=== PATIENT | female | born 1960 | race Caucasian/White ===

== ENCOUNTER 2020-11-05 12:46 | Emergency (ER) | payer OTHER, SELFPAY ==
[2020-11-05 13:01] VITALS: BP 167/99; PULSE 91; RESP 18; TEMP 36.7; O2SAT 98
--- NOTE | 2020-11-05 13:05 | ED.GENADULT ---
HPI - General Adult General Chief complaint: Eye Problems Stated complaint: eye problems Time Seen by Provider: 11/05/20 13:05 Source: patient and RN notes reviewed Mode of arrival: ambulatory Limitations: no limitations History of Present Illness HPI narrative: 60-year-old female presents with complaints of swelling and redness to the right upper eyelid for 1 day. ?Debbie reports increasing symptoms throughout the night and today. ?Warm compresses and saline flushes without relief. ?Debbie believed she initially had retained contact, in which she had removed intact. ?No redness to the eye. ?No drainage. ?No blurred vision, double vision, sensation of foreign body, facial swelling, or pain of eye with movement. No exacerbating factors. No relieving factors. Wears glasses and/or contacts, presently has glasses on. Denies fever. Remains active. The patient reports she has not been diagnosed with COVID-19. The patient reports she is not waiting for the results of a COVID-19 lab test. ?The patient reports she does not have chills, weakness, fatigue, or myalgia. The patient reports she does not have a new or worsening cough or shortness of breath. The patient reports she does not have any rhinorrhea, congestion, loss of taste, sore throat, and diarrhea. Denies recent traveling. Denies concerns for COVID-19 or exposures. At this time, the patient is not suspected of having COVID-19. Some parts of this dictation were generated by voice recognition software and may contain typographical and/or grammatical inaccuracies. Related Data Home Medications Medication Instructions Recorded Confirmed cholecalciferol (vitamin D3) 11/05/20 11/05/20 Allergies Allergy/AdvReac Type Severity Reaction Status Date / Time Penicillins Allergy Severe Other Verified 11/05/20 13:09 Review of Systems Review of Systems: Narrative: CONSTITUTIONAL: Denies fever, chills, sweats. EYES: Denies visual changes, discharge, sensation of foreign body. Complaints of swelling and redness to RT upper eyelid. ENT: Denies rhinorrhea, congestion, sore throat, otalgia. CARDIOVASCULAR: Denies chest pain, palpitations, edema. RESPIRATORY: Denies dyspnea, wheezing, cough. GASTROINTESTINAL: Denies abdominal pain, nausea, vomiting, diarrhea. SKIN: Denies rash or itching. MUSCULOSKELETAL: Denies acute back pain, joint pain, or myalgia. NEUROLOGIC: Denies numbness or focal weakness. PSYCHIATRIC: Denies anxiety or depression. All systems reviewed & are unremarkable except as noted in HPI and below. [facility] Past Medical History Medical History (Updated 11/06/20 @ 00:01 by Bienvenido Menendez) Elevated blood pressure reading Surgical History Surgical History (Updated 11/05/20 @ 13:34 by NORMAN Bunn) History of tubal ligation Family History Family History (Updated 11/05/20 @ 13:35 by NORMAN uBnn) Father Lung disease Mother Diabetes mellitus Social History Social History (Updated 11/05/20 @ 13:35 by NORMAN Bunn) Years smoked: 40 Smoking status: Current every day smoker Tobacco type: cigarettes Second hand tobacco smoke exposure: No Alcohol intake: current Substance use: never Substance use type: does not use Living arrangements: with family Occupation/Education: occupation Gender identity (if verbalized by the patient): Female Sexual Orientation (if Verbalized by the Patient): Straight or Heterosexual Comments At time of signature, I have reviewed and agree with the nursing past medical, surgical, social, and family history. Please see the nursing chart for further information. There is no relevant family history pertinent to the presenting complaint. Exam Narrative: Exam Narrative: GENERAL: This is a well-nourished, well-developed patient, in no apparent distress. HEAD: Normocephalic, atraumatic. EYES: PERRL. Sclera clear/white to eyes. Each sclera is clear without drainage, no swel
[2020-11-05 13:53] VITALS: BP 155/89
== END 2020-11-05 13:53 | disposition home or self-care (01) ==
PROVIDERS: Emergency Provider Nurse Practitioner Family; PCP Nurse Practitioner Adult Health
DX: H00.021 Hordeolum internum right upper eyelid (principal); F17.210 Nicotine dependence, cigarettes, uncomplicated
CPT/HCPCS: 99213; G0463